=== PATIENT | female | born 1970 | race Two or more races ===

== ENCOUNTER 2021-06-12 20:06 | Emergency (ER) | payer OTHER ==
[~2021-06-12] VITALS: Ht 152.4 cm; Wt 55.3 kg
[2021-06-12] MEDS ORDERED: GLUMETZA1000 MG PO (20:18)
[2021-06-12] MEDS ORDERED: ACTOS30 MG PO (20:19)
[2021-06-12] MEDS ORDERED: METHOCARBAMOL750 MG PO (20:19)
[2021-06-12] MEDS ORDERED: GRALISE600 MG (20:19)
[2021-06-12] MEDS ORDERED: STEGLATRO15 MG PO (20:20)
[2021-06-12] MEDS ORDERED: VISTARIL50 MG PO (20:20)
[2021-06-12] MEDS ORDERED: TOPAMAX50 MG PO (20:20)
[2021-06-12] MEDS ORDERED: DULOXETINE HCL40 MG (20:20)
[2021-06-12] MEDS ORDERED: FENOFIBRATE150 MG PO (20:21)
[2021-06-12] MEDS ORDERED: TROKENDI XR50 MG PO (20:21)
[2021-06-12] MEDS ORDERED: BASAGLAR K100 UNIT/1 (20:22)
[2021-06-12] MEDS ORDERED: PEPCID AC20 MG PO (22:52)
[2021-06-12] MEDS ORDERED: BACTRIM DS TAB1 EACH PO (22:52)
[2021-06-12] MEDS ORDERED: ZOFRAN8 MG PO (22:52)
== END 2021-06-12 23:11 | disposition home or self-care (01) ==
LOC: ER 20:06
DX: K29.70 Gastritis, unspecified, without bleeding (principal); N39.0 Urinary tract infection, site not specified

== ENCOUNTER 2024-06-30 19:26 | Emergency (ER) | payer OTHER ==
[~2024-06-30] VITALS: Ht 157.5 cm; Wt 65.8 kg
[~2024-06-30 19:26] MED LIST: ACTOS30 MG PO; BACTRIM DS TAB1 EACH PO; BASAGLAR K100 UNIT/1; DULOXETINE HCL40 MG; FENOFIBRATE150 MG PO; GLUMETZA1000 MG PO; GRALISE600 MG; METHOCARBAMOL750 MG PO; PEPCID AC20 MG PO; STEGLATRO15 MG PO; TOPAMAX50 MG PO; TROKENDI XR50 MG PO; VISTARIL50 MG PO; ZOFRAN8 MG PO
[2024-06-30] MEDS ORDERED: LANTUS SOL100 UNIT/1 (19:43)
[2024-06-30] MEDS ORDERED: HUMALOG100 UNIT/2 (19:44)
[2024-06-30] MEDS ORDERED: NEURONTIN800 MG (19:44)
[2024-06-30] MEDS ORDERED: TOPAMAX25 M1 (19:45)
[2024-06-30] MEDS ORDERED: VISTARIL50 MG/ML PO (19:46)
[2024-06-30] MEDS ORDERED: FAMOTIDINE/PF 20 MG in 0.9 % SODIUM CHLORIDE 8 ML IV PUSH STA (20:04)
[2024-06-30] MEDS ORDERED: ONDANSETRON HCL 2 MG/ML VIAL IV ONE (20:15)
[2024-06-30] MEDS ORDERED: CEFTRIAXONE SODIUM 1,000 MG VIAL IV ONE (20:15)
[2024-06-30] MEDS ORDERED: KETOROLAC TROMETHAMINE 30 MG VIAL IV ONE (20:15)
[2024-06-30] MEDS ORDERED: 0.9 % SODIUM CHLORIDE 1,000 ML IV SCH (20:15)
[2024-06-30 20:48] LABS: HEMATOCRIT 37.9 % (36.0-45.00); MEAN CELL VOLUME 74.3 fL (80.00-100.00); MEAN CORPUSCULAR HEMOGLOBIN 25.6 pg (27.00-32.0); MEAN CORPUSCULAR HGB CONC 34.4 g/dl (32.0-36.0); PLATELET COUNT 300 K/uL (150-450); RED CELL DISTRIBUTION WIDTH 14.8 % (11.5-14.5)
[2024-06-30 21:03] LABS: ALBUMIN 3.7 gm/dL (3.4-5.0); BILIRUBIN TOTAL 0.27 mg/dL (0.3-1.2); CALCIUM 9.8 mg/dL (8.5-10.1); CREATININE SERUM 0.87 mg/dL (0.55-1.02); GFR 67.85; GLOBULINA 4.4 G/DL (2.4-3.5); POTASSIUM 3.64 mEq/L (3.5-5.1); TOTAL PROTEIN 8.1 gm/dL (6.4-8.2)
[2024-06-30 21:49] LABS: PH,URINE 6.5 (5.0-8.0); URINE APPEARANCE Cloudy; URINE BILIRRUBIN Negative (NEGATIVE); URINE BLOOD Negative; URINE COLOR Yellow; URINE KETONE Trace (NEGATIVE); URINE LEUKOCYTE Negative; URINE NITRATE Positive
[2024-06-30 21:52] LABS: URINE EPITHELIAL CELLS 72.1 uL (0.0-38.8); URINE RBC 18.3 uL (0.0-20.8); URINE WBC 87.8 uL (0.0-23.2)
[2024-06-30 22:08] LABS: URINE BACTERIA > 9821.5 uL (0.0-1933); URINE CAST 0.87 uL (0.0-1.40); URINE GLUCOSE 500 MG/DL (NEGATIVE); URINE PROTEIN 100 (NEGATIVE)
[2024-06-30] MEDS ORDERED: ONDANSETRON ODT8 MG PO (22:35)
[2024-06-30] MEDS ORDERED: INSULIN REGULAR, HUMAN 1,000 UNIT/10 ML UNITS SUBCUTANEO ONE (22:45)
== END 2024-06-30 22:44 | disposition home or self-care (01) ==
LOC: ER 19:28 → EDBD 19:28 → ER 19:28
PROVIDERS: General Practice
DX: N39.0 Urinary tract infection, site not specified (principal); K29.70 Gastritis, unspecified, without bleeding; R11.10 Vomiting, unspecified; I10 Essential (primary) hypertension; E11.9 Type 2 diabetes mellitus without complications

== ENCOUNTER → 2025-04-24 | Emergency (ER) | payer OTHER ==
[~2025-04-24] MED LIST changes: +HUMALOG100 UNIT/2; +LANTUS SOL100 UNIT/1; +NEURONTIN800 MG; +ONDANSETRON ODT8 MG PO; +TOPAMAX25 M1; +VISTARIL50 MG/ML PO
== END | disposition left against medical advice (07) ==
LOC: ER 19:23
DX: Z53.21 Procedure and treatment not carried out due to patient leaving prior to being seen by health care provider (principal)